=== PATIENT | male | born 2000 | race Two or more races ===

== ENCOUNTER 2023-12-18 20:48 | Emergency (ER) | payer MEDICAID ==
[~2023-12-18] VITALS: Ht 182.9 cm; Wt 90.9 kg
[2023-12-18] MEDS ORDERED: MORPHINE SULFATE 4 MG/ML SYRINGE ONE (20:50)
[2023-12-18] MEDS ORDERED: ONDANSETRON HCL 4 MG/2 ML VIAL ONE (20:50)
[2023-12-18] MEDS: MORPHINE SULFATE 4 MG/ML SYRINGE IVP ONE (20:58)
[2023-12-18] MEDS: ONDANSETRON HCL 4 MG/2 ML VIAL IVP ONE (20:58)
[2023-12-18 20:59] VITALS: TEMP 98.5
[2023-12-18] MEDS: MIDAZOLAM HCL 2 MG/2 ML VIAL IVP ONE (21:28)
[2023-12-18 22:37] VITALS: BP 150/90; PULSE 81; RESP 18
[2023-12-18] MEDS ORDERED: IBUP-1492 PO (22:39)
== END 2023-12-18 22:54 | disposition home or self-care (01) ==
LOC: EMS 20:48
DX: S53.124A Posterior dislocation of right ulnohumeral joint, initial encounter (principal); W18.30XA Fall on same level, unspecified, initial encounter; Y93.89 Activity, other specified; Y92.89 Other specified places as the place of occurrence of the external cause; Y99.8 Other external cause status
CPT/HCPCS: 99284; 24600; 96374; 96375; 73060; 73070; 73080; 73090; J2250; J2270; J2405

== ENCOUNTER 2024-01-06 07:11 | Emergency (ER) | payer MEDICAID ==
[~2024-01-06] VITALS: Ht 172.7 cm; Wt 86.4 kg
[~2024-01-06 07:11] MED LIST: IBUP-1492 PO
[2024-01-06 07:13] VITALS: TEMP 98.5
[2024-01-06 07:46] VITALS: BP 143/95; PULSE 95; RESP 18
== END 2024-01-06 07:55 | disposition home or self-care (01) ==
LOC: EMS 07:11
DX: S53.194A Other dislocation of right ulnohumeral joint, initial encounter (principal); X58.XXXA Exposure to other specified factors, initial encounter; Y93.89 Activity, other specified; Y92.89 Other specified places as the place of occurrence of the external cause; Y99.8 Other external cause status
CPT/HCPCS: 99281; Z7502

== ENCOUNTER 2024-03-01 22:58 | Emergency (ER) | payer MEDICAID | END 2024-03-01 23:55 | disposition left against medical advice (07) | LOC: EMS 22:58 | DX: F10.129 Alcohol abuse with intoxication, unspecified (principal); Z53.21 Procedure and treatment not carried out due to patient leaving prior to being seen by health care provider; Y90.6 Blood alcohol level of 120-199 mg/100 ml ==